=== PATIENT | male | born 1990 | race African-American/Black ===

== ENCOUNTER 2018-02-27 19:00 | Emergency (ER) | payer OTHER ==
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
[2018-02-27 19:29] VITALS: BP 118/71; PULSE 62; TEMP 98.3; BMI 30.9
--- NOTE | 2018-02-27 20:45 | PDOC ---
History of Present Illness - General Chief Complaint: Back Pain Stated Complaint: BACK PAIN Time Seen by Provider: 02/27/18 19:17 - History of Present Illness Initial Comments: 02/27/18 20:43 28-year-old male presents for evaluation of upper and mid back pain as well as left and right flank pain after being Past History - Past Medical History Allergies/Adverse Reactions: Allergies Allergy/AdvReac Type Severity Reaction Status Date / Time acetaminophen [From Tylenol] Allergy Verified 02/27/18 19:22 ibuprofen [From Motrin] Allergy Verified 02/27/18 19:22 Home Medications: Ambulatory Orders NK [No Known Home Medication] 02/27/18 - Suicide/Smoking/Psychosocial Hx Smoking History: Never smoked Have you smoked in the past 12 months: No Information on smoking cessation initiated: No Hx Alcohol Use: No Drug/Substance Use Hx: No Review of Systems - Review of Systems Musculoskeletal: Yes: Back Pain *Physical Exam - Vital Signs Last Vital Signs Temp Pulse Resp BP Pulse Ox 98.3 F 62 18 118/71 99 02/27/18 19:17 02/27/18 19:17 02/27/18 19:17 02/27/18 19:17 02/27/18 20:42 - Physical Exam Comments: 02/27/18 20:44 HEAD: NC/AT EYES: Conjuntiva clear MS: Full ROM in all joints without edema diffuse nonspecific back pain out of proportion to the examination NEUROLOGIC: No gross sensory or motor deficits, NVID SKIN: Normal color and temperature no lesions or rashes Moderate Sedation - Procedure Monitoring Vital Signs: Procedure Monitoring Vital Signs Temperature 98.3 F 02/27/18 19:17 Pulse Rate 62 02/27/18 19:17 Respiratory Rate 18 02/27/18 19:17 Blood Pressure 118/71 02/27/18 19:17 O2 Sat by Pulse Oximetry (%) 99 02/27/18 20:42 ED Treatment Course - LABORATORY CBC & Chemistry Diagram: 02/27/18 21:25 02/27/18 21:25 Medical Decision Making - Medical Decision Making 02/27/18 22:47 CT pending pt signed out to main ER *DC/Admit/Observation/Transfer Diagnosis at time of Disposition: Back pain Qualifiers: Chronicity: acute Back pain laterality: bilateral Sciatica presence: without sciatica - Referrals - Patient Instructions - Post Discharge Activity
[2018-02-27 21:45] LABS: BASO % 0.7 % (0-2.0); HEMATOCRIT 42.6 % (35.4-49); HEMOGLOBIN 14.2 GM/dL (11.7-16.9); LYMPH % 44.4 % (8-40); MCH 27.5 pg (25.7-33.7); MCHC 33.3 g/dl (32.0-35.9); MEAN CELL VOLUME 82.6 fl (80-96); MEAN PLT VOLUME 9.1 fl (7.5-11.1); MONO % 8.2 % (3.8-10.2); NEUT % 46.7 % (42.8-82.8); PLATELET COUNT 270 K/MM3 (134-434); RBC 5.16 M/mm3 (4.00-5.60); RDW 16.7 % (11.9-15.9); WHITE BLOOD COUNT 6.3 K/mm3 (4.0-10.0)
[2018-02-27 22:10] LABS: ALBUMIN 4.1 g/dl (3.4-5.0); ALK PHOS 71 U/L (45-117); ANION GAP 7 MMOL/L (8-16); BILIRUBIN,TOTAL 0.4 mg/dL (0.2-1); BLOOD UREA NITROGEN 15 mg/dL (7-18); CHLORIDE 105 mmol/L (98-107); CO2 28 mmol/L (21-32); CREATININE 0.9 mg/dL (0.55-1.3); GLUCOSE,RANDOM 97 mg/dL (74-106); POTASSIUM 5.1 mmol/L (3.5-5.1); SGOT/AST 27 U/L (15-37); SGPT/ALT 26 U/L (13-61); SODIUM 140 mmol/L (136-145); TOT PROT 8.1 g/dl (6.4-8.2)
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
[2018-02-28] MEDS ORDERED: METHOCARBAMOL 500 MG TABLET PO ONE (00:54)
[2018-02-28] MEDS ORDERED: METHOCARBAMOL 500 MG TABLET ONE (00:59)
== END 2018-02-28 01:15 | disposition home or self-care (01) ==
LOC: JER 19:00
DX: M54.9 Dorsalgia, unspecified (principal)
CPT/HCPCS: 36415; 74177-TC; 80053; 85025; 99282-25